=== PATIENT | female | born 1950 | race African-American/Black ===

== ENCOUNTER 2023-10-09 18:52 | Emergency (ER) | payer MEDICARE ==
[~2023-10-09] VITALS: Ht 162.6 cm; Wt 80.0 kg
[~2023-10-09 18:52] MED LIST: ALBU2.5V13 NEB; ATOR10TA69 PO; FAMO-135 PO; FLUT15.844 BOTHNSTRLS; LOSA1TAB34 PO; MONT-46 PO; TIOT18CA3 IH
[2023-10-09 19:04] VITALS: BP 135/65; PULSE 107; RESP 18; TEMP 99.1; O2SAT 99
[2023-10-09] MEDS ORDERED: ACETAMINOPHEN 325MG TABLET PO STA (19:45)
[2023-10-09 20:28] LABS: HEMATOCRIT. 36.1 % (36.0-48.0); HEMOGLOBIN. 11.9 g/dL (12.0-16.0); MEAN CORPUSCULAR HEMOGLOBIN 28.9 pg (28.0-32.0); MEAN CORPUSCULAR VOLUME 87.7 fL (81.0-99.0); MEAN PLATELET VOLUME 9.3 fl (7.4-10.4); PLATELET 358 x1000/uL (130-400); RED BLOOD CELL COUNT 4.11 mill/uL (4.2-5.4); RED CELL DISTRIBUTION WIDTH 14.7 % (11.6-14.6); WHITE BLOOD COUNT 17.1 x1000/uL (4.5-11.0)
[2023-10-09 21:06] LABS: DIFFERENTIAL COMMENT 1
[2023-10-09 21:20] LABS: LACTIC ACID 2.8 mmol/L (0.4-2.0)
[2023-10-09] MEDS ORDERED: SODIUM CHLORIDE 0.9% 1000ML BAG (SEPSIS BOLUS) IV ONE (21:30)
[2023-10-09] MEDS ORDERED: PIPERACILLIN/TAZ 3.375G PREMIX 50 ML IV ONE (21:30)
[2023-10-09] MEDS ORDERED: VANCOMYCIN 1G PREMIX 200 ML IV ONE (21:30)
[2023-10-09 22:29] LABS: PLATELET ESTIMATE NORMAL
[2023-10-09 22:43] LABS: ALANINE AMINOTRANSFERASE 41 IU/L (10-49); ALBUMIN 4.4 g/dL (3.2-4.8); ASPARTATE AMINOTRANSFERASE 35 IU/L (<34); BILIRUBIN TOTAL 0.4 mg/dL (0.1-1.0); CALCIUM 9.5 mg/dL (8.7-10.4); CARBON DIOXIDE 24 mEq/L (21-32); CHLORIDE 108 mEq/L (98-107); GLUCOSE 129 mg/dL (70-105); POTASSIUM 3.8 mEq/L (3.5-5.1); SODIUM 142 mEq/L (136-145); UREA NITROGEN BLOOD 12 mg/dL (9-23)
[2023-10-09 22:50] LABS: TROPONIN I HIGH SENSITIVITY < 4 ng/L (3.0-34)
[2023-10-09] MEDS ORDERED: ALBUTEROL (0.083%) 2.5MG/3ML NEB HHN ONE (23:30)
== END 2023-10-10 01:42 | disposition left against medical advice (07) ==
LOC: ER 18:52 → CANBEDREQ 10-10 00:50 → ER 10-10 01:42
DX: A41.9 Sepsis, unspecified organism (principal); J44.9 Chronic obstructive pulmonary disease, unspecified; E78.00 Pure hypercholesterolemia, unspecified; I10 Essential (primary) hypertension; Z79.899 Other long term (current) drug therapy
CPT/HCPCS: 99284; 71045; 80053; 83880; 83605; 85025; 87040; 84484; J7030